=== PATIENT | male | born 2000 | race Caucasian/White ===

== ENCOUNTER 2022-07-26 06:49 | Inpatient (IN) | payer OTHER ==
[2022-07-26] MEDS ORDERED: Calcium Gluc 4.6 MEQ/10 ML (100 MG/ML) ONE (07:13)
[2022-07-26] MEDS ORDERED: Tranexamic Acid 1,000 MG/10 ML VIAL ONE (07:13)
[2022-07-26] MEDS ORDERED: CEFAZOLIN 1 GM VIAL ONE (07:14)
[2022-07-26] MEDS ORDERED: Boostrix 0.5 ML (Tdap) VIAL (>/=7 yrs of age) ONE (07:19)
[2022-07-26 07:46] LABS: Hemoglobin 12.9 g/dL (14.0-18.0); Mean Corpuscular HGB CONC 32.4 g/dL (32.0-36.0); Mean Corpuscular Hemoglobin 30.6 pg (25.0-35.0); Mean Corpuscular Volume 94.5 fl (78.0-98.0); Mean Platelet Volume 6.9 fL (7.4-10.4); Platelet Count 453 10x3/uL (130-400); Red Blood Cell (RBC) Count 4.22 mill/uL (4.00-5.20); White Blood Cell (WBC) Count 31.5 10x3/uL (4.8-10.8)
[2022-07-26 07:47] LABS: Alcohol 132 mg/dL (Less than 10); Lipase 33 U/L (8-78); Salicylate Less than 8.0 mg/dL (15.0-30.0)
[2022-07-26 07:48] LABS: ALT (SGPT) 47 U/L (8-55); AST (SGOT) 86 U/L (10-45); Albumin 2.8 g/dL (3.5-5.0); Alkaline Phosphatase 57 U/L (50-130); Anion Gap 20 mmol/L (10-20); BUN (Urea Nitrogen) 18 mg/dL (8.4-21.0); Bilirubin, Total 0.3 mg/dL (0.2-1.2); Calc. Creatinine Clearance 0 mL/min (70-130); Carbon Dioxide 13 mmol/L (22-29); Chloride 117 mmol/L (98-107); Estimated GFR 115; Globulin 1.6 g/dL (2.4-3.5); Glucose 117 mg/dL (70-105); Potassium 4.8 mmol/L (3.5-5.1); Protein, Total 4.4 g/dL (6.0-8.3); Sodium 145 mmol/L (136-145)
[2022-07-26 07:56] LABS: Actual Bicarbonate (HCO3a) 15.2 mEq/L (22-28); Analyzer IN Cardio ER; CO2 Tension 35.2 mmHg (35.0-45.0); Calcium, Ionized (arterial) 1.19 mmol/L (1.12-1.30); Carboxyhemoglobin (COHb) 0.3 gm% (0.0-3.0); Hemoglobin (Hb) 12.8 g/dL (11.4-15.4); O2 Tension (PaO2), arterial 167.7 mmHg (80.0-100.0); Potassium - ABG Lab 4.09 mmol/L (3.70-5.30); pH, Arterial 7.25 (7.35-7.45)
[2022-07-26] MEDS ORDERED: FENTANYL 50 MCG/ML 1 ML VIAL ONE (07:57)
[2022-07-26] MEDS ORDERED: Ondansetron PF 4 MG/2 ML Vial IVP PRN (08:02)
[2022-07-26] MEDS ORDERED: Dextrose 50% Abboject 50 ML SYRINGE SLOW IVP PRN (08:02)
[2022-07-26] MEDS ORDERED: TETANUS, DIPHTHERIA TOX,ADULT (TDVAX) 0.5 ML VIAL IM ONE (08:02)
[2022-07-26] MEDS ORDERED: Dextrose 5% in Water 1,000 ML IV PRN (08:02)
[2022-07-26] MEDS ORDERED: hydrALAZINE 20 MG/ML VIAL SLOW IVP PRN (08:02)
[2022-07-26] MEDS ORDERED: HumaLOG 300 UNITS/3 ML VIAL SC PRN (08:02)
[2022-07-26 08:09] LABS: Puncture Site RRA
[2022-07-26 08:09] LABS: INR-International Normal Ratio 1.4; PTT 32.8 sec (22.9-36.1); Prothrombin Time 17.2 sec (12.0-14.7)
[2022-07-26] MEDS ORDERED: FENTANYL 500 MCG/10 ML VIAL 2,000 MCG in Sodium Chloride 0.9% 60 ML IV SCH (08:30)
[2022-07-26 08:44] LABS: Calcium 6.3 mg/dL (7.8-10.44)
[2022-07-26 08:46] LABS: Band 23 % (5-11); Eosinophils 1 % (0-10); Lymphocytes 27 % (28-48); MDiff Complete? YES; Monocytes 6 % (0-4); Myelocyte 1 % (0-0); Neutrophil 42 % (31-61); Platelet Morphology Comment Appears Increased; RBC Morphology Normal
[2022-07-26 08:57] LABS: Hemoglobin 15.3 g/dL (14.0-18.0); Mean Corpuscular HGB CONC 32.7 g/dL (32.0-36.0); Mean Corpuscular Hemoglobin 30.7 pg (25.0-35.0); Mean Platelet Volume 6.9 fL (7.4-10.4); Platelet Count 354 10x3/uL (130-400); RBC Distribution Width 12.2 % (11.5-14.5); Red Blood Cell (RBC) Count 4.97 mill/uL (4.00-5.20); White Blood Cell (WBC) Count 34.8 10x3/uL (4.8-10.8)
[2022-07-26] MEDS: Famotidine/PF 20 mg/2ml Vial SLOW IVP SCH ×2 (09:00→19:43)
[2022-07-26] MEDS: Acetaminophen 500 MG TAB PO SCH ×3 (09:00→20:09)
[2022-07-26 09:28] LABS: Acetaminophen Less than 10.0 mcg/mL (10.0-30.0)
[2022-07-26] MEDS ORDERED: Clindamycin/D5W 900 mg/50 ml Premix Bag ONE (09:47)
[2022-07-26 10:20] LABS: Bacteria/HPF None Seen HPF (None Seen); Bilirubin Negative (Negative); Blood, Urine 3+ (Negative); Clarity Clear (Clear); Glucose, Urine (Dipstick) Normal (Negative); Ketone, Urine Negative (Negative); Leukocyte Negative Leu/uL (Negative); Nitrite Negative (Negative); Protein, Urine (Dipstick) 30 mg/dL (Neg-Trace); RBC/HPF 21-50 HPF (0-3); Specific Gravity, Urine 1.022 (1.002-1.036); Squamous Epithelial 0-3 HPF (0-3); Urobilinogen Normal mg/dL (Less than 2); WBC/HPF 0-3 HPF (0-3)
[2022-07-26] MEDS ORDERED: Midazolam HCl 2 mg/2 ml Vial ONE (10:26)
[2022-07-26 10:27] LABS: Amphetamine Not Detected (NotDetected); Barbiturates Screen Not Detected (NotDetected); Benzodiazepine Screen Not Detected (NotDetected); Cocaine Metabolite Screen Not Detected (NotDetected); Methadone Not Detected (NotDetected); Methamphetamine Not Detected (NotDetected); Opiate Screen Not Detected (NotDetected); Oxycodone Screen Not Detected (NotDetected); Phencyclidine (PCP) Not Detected (NotDetected); THC/Cannabinoid Screen Detected (NotDetected); Tricyclic Screen Not Detected (NotDetected)
[2022-07-26] MEDS ORDERED: Calcium Chloride 1 GM/10 ML Abboject SYRINGE ONE ×2 (10:38→13:25)
[2022-07-26] MEDS ORDERED: Rocuronium Bromide 10 MG/ML (10ML VIAL) ONE (10:38)
[2022-07-26] MEDS ORDERED: Vecuronium 10 MG VIAL ONE (10:38)
[2022-07-26] MEDS ORDERED: Albumin 5% 500 ML ONE ×2 (10:54→12:34)
[2022-07-26] MEDS ORDERED: Morphine 4 MG/ML VIAL SLOW IVP PRN (11:15)
[2022-07-26] MEDS ORDERED: Propofol 1,000 MG/100 ML VIAL IV PRN (11:15)
[2022-07-26] MEDS ORDERED: Propofol BOLUS 1,000 MG/100 ML VIAL IV PRN (11:15)
[2022-07-26] MEDS ORDERED: Lorazepam 2 MG/ML VIAL SLOW IVP PRN (11:15)
[2022-07-26] MEDS ORDERED: Fentanyl BOLUS 250 ML IVPB PRN (11:15)
[2022-07-26] MEDS ORDERED: Fentanyl CADD 100 ML IV SCH ×2 (11:15→16:30)
[2022-07-26] MEDS ORDERED: cefTRIAXone\\ROCEPHIN 1 GM VIAL ONE (11:20)
[2022-07-26] MEDS ORDERED: metroNIDAZOLE 500 MG/100 ML BAG ONE (11:20)
[2022-07-26] MEDS ORDERED: Tobramycin Sulfate 1.2 GM VIAL ONE (11:38)
[2022-07-26] MEDS ORDERED: Vancomycin 1 GM VIAL ONE (11:38)
[2022-07-26] MEDS ORDERED: Rocuronium Bromide 50 MG/5 ML VIAL ONE ×2 (12:02→14:33)
[2022-07-26 12:04] LABS: Band 15 % (5-11); Eosinophils 1 % (0-10); Lymphocytes 14 % (28-48); MDiff Complete? YES; Monocytes 10 % (0-4); Neutrophil 60 % (31-61); Platelet Morphology Comment Appears Adequate; RBC Morphology Normal
[2022-07-26] MEDS ORDERED: Iopamidol-370 76% 500 ML 1 ML ONE ×2 (13:17→13:19)
[2022-07-26] MEDS ORDERED: Sodium Bicarbonate 2.5 MEQ/5 ML VIAL ONE (13:25)
[2022-07-26] MEDS ORDERED: FENTANYL 500 MCG/10 ML VIAL 2,000 MCG in Sodium Chloride 0.9% 60 ML IV PRN (15:51)
[2022-07-26] MEDS ORDERED: Dexmedetomidine In 0.9 % NaCl 100 ML IVPB SCH (16:00)
[2022-07-26] MEDS: Sodium Chloride 0.9% 1,000 ML IV SCH ×4 (16:07→19:53)
[2022-07-26 16:09] LABS: Actual Bicarbonate (HCO3a) 18.2 mEq/L (22-28); Base Excess (BEa) -7.3 mEq/L (-2.0 to +3.0); CO2 Tension 36.8 mmHg (35.0-45.0); Calcium, Ionized (arterial) 1.15 mmol/L (1.12-1.30); Carboxyhemoglobin (COHb) 0.1 gm% (0.0-3.0); Potassium - ABG Lab 4.53 mmol/L (3.70-5.30); pH, Arterial 7.31 (7.35-7.45)
[2022-07-26 16:10] LABS: O2 Tension (PaO2), arterial 53.8 mmHg (80.0-100.0); Puncture Site Arterial Line
[2022-07-26] MEDS ORDERED: Fentanyl CADD 100 ML ONE (16:17)
[2022-07-26 16:44] LABS: #Lymphocytes 1.6 thou/uL (1.20-3.40); #Monocytes 1.1 thou/uL (0.11-0.59); #Neutrophils 10.8 thou/uL (1.40-6.50); %Basophils 0.1 % (0.0-1.0); %Eosinophils 0.1 % (0.0-10.0); %Lymphocytes 11.9 % (28.0-48.0); %Monocytes 7.9 % (0.0-4.0); Mean Corpuscular HGB CONC 35.8 g/dL (32.0-36.0); Mean Corpuscular Volume 92.3 fl (78.0-98.0); Mean Platelet Volume 6.8 fL (7.4-10.4); Platelet Count 235 10x3/uL (130-400); Red Blood Cell (RBC) Count 3.03 mill/uL (4.00-5.20); White Blood Cell (WBC) Count 13.5 10x3/uL (4.8-10.8)
[2022-07-26 16:50] LABS: Lactic Acid 1.8 mmol/L (0.5-2.2)
[2022-07-26 16:54] LABS: INR-International Normal Ratio 1.4; Prothrombin Time 17.4 sec (12.0-14.7)
[2022-07-26 16:55] LABS: PTT 32.8 sec (22.9-36.1)
[2022-07-26 17:06] LABS: Anion Gap 16 mmol/L (10-20); BUN (Urea Nitrogen) 20 mg/dL (8.4-21.0); Calc. Creatinine Clearance 116 mL/min (70-130); Calcium 8.3 mg/dL (7.8-10.44); Carbon Dioxide 17 mmol/L (22-29); Chloride 116 mmol/L (98-107); Estimated GFR 100; Glucose 116 mg/dL (70-105); Magnesium 1.8 mg/dL (1.7-2.2); Phosphorus 4.2 mg/dL (2.3-4.7); Potassium 4.6 mmol/L (3.5-5.1); Sodium 144 mmol/L (136-145)
[2022-07-26] MEDS ORDERED: fentaNYL PF 100 MCG/2 ML SYRINGE ONE ×2 (17:09→17:14)
[2022-07-26 17:30] LABS: CK (CPK) 9491 U/L (30-200)
[2022-07-26] MEDS ORDERED: Magnesium 2 GM/50 ML(in water) 2 GM in Premix Bag 1 BAG IVPB SCH (19:00)
[2022-07-26] MEDS ORDERED: Sodium Chloride 0.9% 1,000 ML IV SCH ×2 (19:30→21:15)
[2022-07-26] MEDS ORDERED: Hydrocortisone Sod Succ/PF 100 mg/2 ml Vial IVP SCH (19:30)
[2022-07-26] MEDS ORDERED: ALBUMIN 5% 25 GM/500 ML BAG IVPB SCH (19:45)
[2022-07-26 20:22] LABS: #Lymphocytes 1.2 thou/uL (1.20-3.40); #Monocytes 0.8 thou/uL (0.11-0.59); %Eosinophils 0.1 % (0.0-10.0); %Lymphocytes 12.3 % (28.0-48.0); %Monocytes 7.8 % (0.0-4.0); %Neutrophils 79.8 % (31.0-61.0); Hemoglobin 9.1 g/dL (14.0-18.0); Mean Corpuscular HGB CONC 33.3 g/dL (32.0-36.0); Mean Corpuscular Hemoglobin 31.1 pg (25.0-35.0); Mean Corpuscular Volume 93.2 fl (78.0-98.0); Mean Platelet Volume 7.3 fL (7.4-10.4); Platelet Count 203 10x3/uL (130-400); RBC Distribution Width 12.4 % (11.5-14.5); Red Blood Cell (RBC) Count 2.93 mill/uL (4.00-5.20)
[2022-07-26] MEDS: metroNIDAZOLE 500 MG in Premix Bag 1 BAG IVPB SCH (20:48)
[2022-07-27 01:11] LABS: #Lymphocytes 0.8 thou/uL (1.20-3.40); #Monocytes 0.5 thou/uL (0.11-0.59); #Neutrophils 7.3 thou/uL (1.40-6.50); %Eosinophils 0.1 % (0.0-10.0); %Lymphocytes 9.1 % (28.0-48.0); %Monocytes 5.9 % (0.0-4.0); %Neutrophils 84.9 % (31.0-61.0); Hemoglobin 7.5 g/dL (14.0-18.0); Mean Corpuscular HGB CONC 33.9 g/dL (32.0-36.0); Mean Corpuscular Hemoglobin 31.4 pg (25.0-35.0); Mean Corpuscular Volume 92.5 fl (78.0-98.0); Mean Platelet Volume 6.7 fL (7.4-10.4); Platelet Count 163 10x3/uL (130-400); RBC Distribution Width 12.3 % (11.5-14.5); Red Blood Cell (RBC) Count 2.37 mill/uL (4.00-5.20); White Blood Cell (WBC) Count 8.5 10x3/uL (4.8-10.8)
[2022-07-27] MEDS: Acetaminophen 500 MG TAB PO SCH ×2 (03:21→08:53)
[2022-07-27] MEDS: Hydrocortisone Sod Succ/PF 100 mg/2 ml Vial IVP SCH ×3 (03:22→20:23)
[2022-07-27] MEDS: Sodium Chloride 0.9% 1,000 ML IV SCH ×3 (03:29→15:12)
[2022-07-27 04:06] LABS: #Monocytes 0.6 thou/uL (0.11-0.59); #Neutrophils 8.7 thou/uL (1.40-6.50); %Basophils 0.2 % (0.0-1.0); %Eosinophils 0.1 % (0.0-10.0); %Lymphocytes 9.5 % (28.0-48.0); %Neutrophils 84.2 % (31.0-61.0); Hemoglobin 8.6 g/dL (14.0-18.0); Mean Corpuscular Hemoglobin 31.4 pg (25.0-35.0); Mean Corpuscular Volume 92.3 fl (78.0-98.0); Platelet Count 156 10x3/uL (130-400); RBC Distribution Width 12.5 % (11.5-14.5); Red Blood Cell (RBC) Count 2.72 mill/uL (4.00-5.20); White Blood Cell (WBC) Count 10.3 10x3/uL (4.8-10.8)
[2022-07-27 04:10] LABS: INR-International Normal Ratio 1.7; Lactic Acid 1.1 mmol/L (0.5-2.2); PTT 34.5 sec (22.9-36.1); Prothrombin Time 20.7 sec (12.0-14.7)
[2022-07-27 04:21] LABS: Anion Gap 10 mmol/L (10-20); BUN (Urea Nitrogen) 20 mg/dL (8.4-21.0); Calc. Creatinine Clearance 120 mL/min (70-130); Calcium 7.3 mg/dL (7.8-10.44); Carbon Dioxide 20 mmol/L (22-29); Chloride 116 mmol/L (98-107); Estimated GFR 105; Glucose 138 mg/dL (70-105); Potassium 4.2 mmol/L (3.5-5.1); Sodium 142 mmol/L (136-145)
[2022-07-27 04:29] LABS: Phosphorus 2.9 mg/dL (2.3-4.7)
[2022-07-27] MEDS: metroNIDAZOLE 500 MG in Premix Bag 1 BAG IVPB SCH ×3 (05:11→21:49)
[2022-07-27] MEDS ORDERED: Fentanyl CADD 100 ML ONE (07:25)
[2022-07-27] MEDS: Famotidine/PF 20 mg/2ml Vial SLOW IVP SCH ×2 (08:53→20:23)
[2022-07-27] MEDS ORDERED: FLU VACC QS2022-23(6MOS UP)/PF 60 MCG/0.5 ML SYRINGE IM ONE (09:00)
[2022-07-27] MEDS ORDERED: Iopamidol-370 76% 500 ML 1 ML ONE (10:40)
[2022-07-27] MEDS ORDERED: Acetaminophen 325 MG TAB PO SCH (10:45)
[2022-07-27] MEDS: Acetaminophen/Codeine 30-300mg Tablet PO SCH ×2 (12:46→16:45)
[2022-07-27] MEDS ORDERED: Gabapentin 100 MG CAP PO SCH (15:00)
[2022-07-27] MEDS ORDERED: Acetaminophen/Codeine 30-300mg Tablet PO SCH (18:00)
[2022-07-27] MEDS: Acetaminophen 325 MG TAB PO SCH ×2 (18:20→20:33)
[2022-07-27] MEDS ORDERED: diphenhydrAMINE 25 MG CAP PO PRN (18:31)
[2022-07-27] MEDS ORDERED: diphenhydrAMINE 50 MG/ML VIAL IM PRN (18:31)
[2022-07-27] MEDS ORDERED: diphenhydrAMINE 50 MG/ML VIAL IVP PRN (18:31)
[2022-07-27] MEDS ORDERED: HYDROmorphone 10 mg/100 ml CADD IVPB PRN (18:31)
[2022-07-27] MEDS ORDERED: Naloxone HCl 0.4 mg/ml Vial IV PRN (18:31)
[2022-07-27] MEDS ORDERED: Communication Order-Pharmacy FS SCH (18:45)
[2022-07-27] MEDS ORDERED: cefTRIAXone\\ROCEPHIN 2 GM in Sodium Chloride 0.9% 100 ML IVPB SCH (19:00)
[2022-07-27] MEDS: Gabapentin 300 MG CAP PO SCH (20:22)
[2022-07-28] MEDS: Acetaminophen 325 MG TAB PO SCH ×3 (02:10→15:10)
[2022-07-28] MEDS: Hydrocortisone Sod Succ/PF 100 mg/2 ml Vial IVP SCH (03:21)
[2022-07-28 03:41] LABS: #Eosinphils 0.2 thou/uL (0.0-0.7); #Lymphocytes 0.9 thou/uL (1.20-3.40); #Monocytes 0.5 thou/uL (0.11-0.59); #Neutrophils 9.5 thou/uL (1.40-6.50); %Basophils 0.1 % (0.0-1.0); %Eosinophils 1.8 % (0.0-10.0); %Lymphocytes 8.1 % (28.0-48.0); %Monocytes 4.4 % (0.0-4.0); %Neutrophils 85.6 % (31.0-61.0); Mean Corpuscular HGB CONC 33.1 g/dL (32.0-36.0); Mean Corpuscular Hemoglobin 31.3 pg (25.0-35.0); Mean Corpuscular Volume 94.5 fl (78.0-98.0); Mean Platelet Volume 7.4 fL (7.4-10.4); Platelet Count 154 10x3/uL (130-400); RBC Distribution Width 12.8 % (11.5-14.5); Red Blood Cell (RBC) Count 2.87 mill/uL (4.00-5.20); White Blood Cell (WBC) Count 11.1 10x3/uL (4.8-10.8)
[2022-07-28 04:04] LABS: Anion Gap 13 mmol/L (10-20); BUN (Urea Nitrogen) 13 mg/dL (8.4-21.0); Calc. Creatinine Clearance 153 mL/min (70-130); Calcium 8.3 mg/dL (7.8-10.44); Carbon Dioxide 20 mmol/L (22-29); Chloride 108 mmol/L (98-107); Estimated GFR 129; Glucose 129 mg/dL (70-105); Magnesium 2.1 mg/dL (1.7-2.2); Phosphorus 1.6 mg/dL (2.3-4.7); Potassium 4.1 mmol/L (3.5-5.1); Sodium 137 mmol/L (136-145)
[2022-07-28 04:19] LABS: CK (CPK) 13041 U/L (30-200)
[2022-07-28] MEDS: metroNIDAZOLE 500 MG in Premix Bag 1 BAG IVPB SCH (05:11)
[2022-07-28] MEDS ORDERED: Sodium Phosphate 30 MMOL in Sodium Chloride 0.9% 250 ML 250 ML IVPB SCH (08:00)
[2022-07-28] MEDS: Famotidine/PF 20 mg/2ml Vial SLOW IVP SCH ×2 (09:53→20:14)
[2022-07-28] MEDS: Gabapentin 300 MG CAP PO SCH ×3 (09:53→20:13)
[2022-07-28] MEDS: Cyclobenzaprine 10 MG TAB PO PRN ×2 (10:11→20:16)
[2022-07-28] MEDS ORDERED: Morphine 2 MG/ML VIAL SLOW IVP PRN (15:31)
[2022-07-28] MEDS: traMADol HCl 50 MG TAB PO SCH (17:26)
[2022-07-28] MEDS: Acetaminophen 500 MG TAB PO SCH (20:13)
[2022-07-29] MEDS: traMADol HCl 50 MG TAB PO SCH ×4 (00:54→18:40)
[2022-07-29] MEDS: Acetaminophen 500 MG TAB PO SCH ×4 (02:00→21:09)
[2022-07-29 06:35] LABS: #Eosinphils 0.5 thou/uL (0.0-0.7); #Lymphocytes 1.2 thou/uL (1.20-3.40); #Monocytes 0.5 thou/uL (0.11-0.59); #Neutrophils 8.6 thou/uL (1.40-6.50); %Basophils 0.2 % (0.0-1.0); %Eosinophils 4.8 % (0.0-10.0); %Lymphocytes 10.8 % (28.0-48.0); %Monocytes 4.6 % (0.0-4.0); %Neutrophils 79.6 % (31.0-61.0); Hemoglobin 8.8 g/dL (14.0-18.0); Mean Corpuscular HGB CONC 32.5 g/dL (32.0-36.0); Mean Corpuscular Hemoglobin 30.2 pg (25.0-35.0); Mean Corpuscular Volume 92.8 fl (78.0-98.0); Mean Platelet Volume 7.3 fL (7.4-10.4); Platelet Count 202 10x3/uL (130-400); RBC Distribution Width 12.6 % (11.5-14.5); Red Blood Cell (RBC) Count 2.93 mill/uL (4.00-5.20); White Blood Cell (WBC) Count 10.8 10x3/uL (4.8-10.8)
[2022-07-29 06:58] LABS: Anion Gap 10 mmol/L (10-20); BUN (Urea Nitrogen) 15 mg/dL (8.4-21.0); Calc. Creatinine Clearance 167 mL/min (70-130); Calcium 8.6 mg/dL (7.8-10.44); Carbon Dioxide 28 mmol/L (22-29); Chloride 102 mmol/L (98-107); Estimated GFR 132; Glucose 119 mg/dL (70-105); Phosphorus 1.9 mg/dL (2.3-4.7); Potassium 3.7 mmol/L (3.5-5.1); Sodium 136 mmol/L (136-145)
[2022-07-29 07:25] LABS: CK (CPK) 8328 U/L (30-200)
[2022-07-29] MEDS ORDERED: Enoxaparin Sodium 40 MG/0.4 ML SYRINGE SC SCH (09:00)
[2022-07-29] MEDS ORDERED: Potassium Phosphate 30 MMOL, Magnesium Sulfate 3 GM in Sodium Chloride 0.9% 250 ML 250 ML IVPB SCH (09:00)
[2022-07-29] MEDS ORDERED: Morphine 4 MG/ML VIAL SLOW IVP PRN (10:15)
[2022-07-29] MEDS: Gabapentin 300 MG CAP PO SCH ×3 (10:20→21:10)
[2022-07-29] MEDS: Enoxaparin Sodium 30 MG/0.3 ML SYRINGE SC SCH ×2 (10:20→21:12)
[2022-07-29] MEDS: Famotidine/PF 20 mg/2ml Vial SLOW IVP SCH ×2 (10:20→21:10)
[2022-07-29] MEDS: Morphine 4 MG/ML VIAL SLOW IVP PRN (14:34)
[2022-07-29] MEDS: Cyclobenzaprine 10 MG TAB PO PRN (21:12)
[2022-07-30] MEDS: Acetaminophen 500 MG TAB PO SCH ×4 (01:13→20:18)
[2022-07-30] MEDS: traMADol HCl 50 MG TAB PO SCH ×4 (01:14→17:30)
[2022-07-30 05:49] LABS: #Eosinphils 0.9 thou/uL (0.0-0.7); #Lymphocytes 1.3 thou/uL (1.20-3.40); #Monocytes 0.6 thou/uL (0.11-0.59); #Neutrophils 5.3 thou/uL (1.40-6.50); %Basophils 0.5 % (0.0-1.0); %Eosinophils 10.5 % (0.0-10.0); %Lymphocytes 15.9 % (28.0-48.0); %Monocytes 7.8 % (0.0-4.0); %Neutrophils 65.2 % (31.0-61.0); Hemoglobin 8.7 g/dL (14.0-18.0); Mean Corpuscular HGB CONC 32.5 g/dL (32.0-36.0); Mean Corpuscular Hemoglobin 30.5 pg (25.0-35.0); Mean Corpuscular Volume 93.8 fl (78.0-98.0); Mean Platelet Volume 6.9 fL (7.4-10.4); Platelet Count 245 10x3/uL (130-400); RBC Distribution Width 12.5 % (11.5-14.5); Red Blood Cell (RBC) Count 2.84 mill/uL (4.00-5.20); White Blood Cell (WBC) Count 8.2 10x3/uL (4.8-10.8)
[2022-07-30 06:27] LABS: Anion Gap 12 mmol/L (10-20); BUN (Urea Nitrogen) 16 mg/dL (8.4-21.0); CK (CPK) 7197 U/L (30-200); Calc. Creatinine Clearance 163 mL/min (70-130); Calcium 8.5 mg/dL (7.8-10.44); Carbon Dioxide 27 mmol/L (22-29); Chloride 102 mmol/L (98-107); Estimated GFR 131; Glucose 111 mg/dL (70-105); Phosphorus 3.4 mg/dL (2.3-4.7); Potassium 3.7 mmol/L (3.5-5.1); Sodium 137 mmol/L (136-145)
[2022-07-30] MEDS ORDERED: Silver Sulfadiazine 1% Cream 20 GM TUBE TOP SCH (09:00)
[2022-07-30] MEDS: Gabapentin 300 MG CAP PO SCH ×3 (09:30→20:23)
[2022-07-30] MEDS: Enoxaparin Sodium 30 MG/0.3 ML SYRINGE SC SCH ×2 (09:30→20:19)
[2022-07-30] MEDS: Ferrous Sulfate 325 MG TAB PO SCH (09:31)
[2022-07-30] MEDS: Ascorbic Acid 500 mg Chewable Tablet PO SCH (09:31)
[2022-07-30] MEDS: Famotidine/PF 20 mg/2ml Vial SLOW IVP SCH ×2 (09:31→20:21)
[2022-07-30 13:38] LABS: Actual Bicarbonate (HCO3a) 15.7 mEq/L (22-28); Analyzer IN Cardio OR; Base Excess (BEa) -11.3 mEq/L (-2.0 to +3.0); CO2 Tension 39.5 mmHg (35.0-45.0); Calcium, Ionized (arterial) 1.09 mmol/L (1.12-1.30); Carboxyhemoglobin (COHb) 0.3 gm% (0.0-3.0); Hemoglobin (Hb) 10.9 g/dL (11.4-15.4); O2 Tension (PaO2), arterial 455.2 mmHg (80.0-100.0); Potassium - ABG Lab 5.21 mmol/L (3.70-5.30); pH, Arterial 7.22 (7.35-7.45)
[2022-07-30 13:38] LABS: Analyzer IN Cardio OR; Calcium, Ionized (arterial) 1.14 mmol/L (1.12-1.30); Carboxyhemoglobin (COHb) 0.2 gm% (0.0-3.0); Hemoglobin (Hb) 11.3 g/dL (11.4-15.4); O2 Tension (PaO2), arterial 434.3 mmHg (80.0-100.0); Potassium - ABG Lab 4.69 mmol/L (3.70-5.30)
[2022-07-30 13:39] LABS: Puncture Site ALINE
[2022-07-30 13:40] LABS: Puncture Site Arterial Line
[2022-07-30] MEDS: Cyclobenzaprine 10 MG TAB PO PRN (20:23)
[2022-07-30] MEDS: Morphine 4 MG/ML VIAL SLOW IVP PRN (21:21)
[2022-07-31] MEDS: traMADol HCl 50 MG TAB PO SCH ×3 (01:02→11:58)
[2022-07-31] MEDS: Acetaminophen 500 MG TAB PO SCH ×3 (02:34→11:59)
[2022-07-31] MEDS: Cyclobenzaprine 10 MG TAB PO PRN (03:24)
[2022-07-31 04:08] LABS: SARS-CoV-2 NAA Rapid Test Not Detected (NotDetected)
[2022-07-31] MEDS: Morphine 4 MG/ML VIAL SLOW IVP PRN ×3 (05:54→14:20)
[2022-07-31 06:18] LABS: Anion Gap 12 mmol/L (10-20); BUN (Urea Nitrogen) 15 mg/dL (8.4-21.0); Calc. Creatinine Clearance 172 mL/min (70-130); Calcium 8.8 mg/dL (7.8-10.44); Carbon Dioxide 28 mmol/L (22-29); Chloride 99 mmol/L (98-107); Estimated GFR 133; Glucose 112 mg/dL (70-105); Sodium 135 mmol/L (136-145)
[2022-07-31 06:30] LABS: CK (CPK) 4692 U/L (30-200)
[2022-07-31] MEDS ORDERED: Silver Sulfadiazine 50 GM TUBE TOP SCH (09:00)
[2022-07-31] MEDS: Enoxaparin Sodium 30 MG/0.3 ML SYRINGE SC SCH (09:59)
[2022-07-31] MEDS: Gabapentin 300 MG CAP PO SCH ×2 (09:59→14:20)
[2022-07-31] MEDS: Famotidine/PF 20 mg/2ml Vial SLOW IVP SCH (09:59)
[2022-07-31] MEDS: Ascorbic Acid 500 mg Chewable Tablet PO SCH (09:59)
[2022-07-31] MEDS: Ferrous Sulfate 325 MG TAB PO SCH (10:00)
[2022-07-31 15:12] VITALS: BMI 21.6
[2022-07-31 16:22] VITALS: BP 135/84; TEMP 97.8
== END 2022-07-31 17:10 | disposition short-term general hospital (02) | DRG 956 ==
LOC: ERS 06:49 → EDBD 06:49 → EDSEX 06:49 → CCU 08:02 → UNDOADMIN 08:02 → SURG A 07-28 11:58
PROVIDERS: ADMIT Specialist; ATTEND Surgery
PROC: 0QS904Z Reposition Left Femoral Shaft with Internal Fixation Device, Open Approach (ICD-10-PCS; principal; 2022-07-26)
PROC: 0W9B30Z Drainage of Left Pleural Cavity with Drainage Device, Percutaneous Approach (ICD-10-PCS; 2022-07-26)
PROC: 0LQR0ZZ Repair Left Knee Tendon, Open Approach (ICD-10-PCS; 2022-07-26)
PROC: 5A1935Z Respiratory Ventilation, Less than 24 Consecutive Hours (ICD-10-PCS; 2022-07-26)
PROC: 30233L1 Transfusion of Nonautologous Fresh Plasma into Peripheral Vein, Percutaneous Approach (ICD-10-PCS; 2022-07-26)
PROC: 30233N1 Transfusion of Nonautologous Red Blood Cells into Peripheral Vein, Percutaneous Approach (ICD-10-PCS; 2022-07-26)
PROC: 30233M1 Transfusion of Nonautologous Plasma Cryoprecipitate into Peripheral Vein, Percutaneous Approach (ICD-10-PCS; 2022-07-26)
DX: S72.352 Displaced comminuted fracture of shaft of left femur (principal); S06.5XAA Traumatic subdural hemorrhage with loss of consciousness status unknown, initial encounter; J96.01 Acute respiratory failure with hypoxia; R40.2322 Coma scale, best motor response, extension, at arrival to emergency department; R40.2122 Coma scale, eyes open, to pain, at arrival to emergency department; S22.32XA Fracture of one rib, left side, initial encounter for closed fracture; S12.500A Unspecified displaced fracture of sixth cervical vertebra, initial encounter for closed fracture; S27.0XXA Traumatic pneumothorax, initial encounter; S27.321A Contusion of lung, unilateral, initial encounter; S15.092A Other specified injury of left carotid artery, initial encounter; S82.202A Unspecified fracture of shaft of left tibia, initial encounter for closed fracture; S36.039A Unspecified laceration of spleen, initial encounter; N17.9 Acute kidney failure, unspecified; E87.20 Acidosis, unspecified; S42.142A Displaced fracture of glenoid cavity of scapula, left shoulder, initial encounter for closed fracture; S42.022A Displaced fracture of shaft of left clavicle, initial encounter for closed fracture; T79.6XXA Traumatic ischemia of muscle, initial encounter; Z20.822 Contact with and (suspected) exposure to COVID-19; V29.99XA Rider (driver) (passenger) of other motorcycle injured in unspecified traffic accident, initial encounter
CPT/HCPCS: 32551; 36415; 36416; 36430; 36600; 70450; 70496; 70498; 71045; 71250; 71260; 72125; 72170; 74177; 80048; 80053; 80306; 80307; 81003; 81015; 82533; 82550; 82805; 83605; 83690; 83735; 84100; 85025; 85384; 85520; 85610; 85730; 86850; 86900; 86901; 90471; 90715; 94002; 94003; 94640; 96365; 96367; 96375; 96376; C1713; G0390; J0610; J0690; J0696; J1200; J1650; J1720; J2250; J2270; J3010; J3260; J3370; J3475; J3490; J7030; J7050; J7620; P9016; P9045; P9048; P9059; Q9967; S0028; U0002